=== PATIENT | female | born 1965 | race Two or more races ===

== ENCOUNTER 2023-05-17 10:03 | Outpatient (REF) | payer OTHER, SELFPAY ==
[2023-05-17 12:36] LABS: Syphilis Screen Nonreactive (Nonreactive)
[2023-05-17 13:39] LABS: Vitamin B12 > 2000 pg/mL (200-900)
[2023-05-21 05:53] LABS: Lyme Abs Screen <0.90 index
== END 2023-05-17 10:04 | disposition home or self-care (01) ==
LOC: HO.LAB 10:03
PROVIDERS: PCP Student in an Organized Health Care Education/Training Program; Visit Provider Psychiatry & Neurology Neurology
DX: G93.40 Encephalopathy, unspecified (principal)
CPT/HCPCS: 36415; 82607; 86617; 86618; 86780

== ENCOUNTER 2023-06-06 08:01 | Outpatient (REF) | payer OTHER, SELFPAY | END 2023-06-06 08:02 | disposition home or self-care (01) | LOC: HO.MRI 08:01 | PROVIDERS: PCP Student in an Organized Health Care Education/Training Program; Visit Provider Psychiatry & Neurology Neurology | DX: G93.40 Encephalopathy, unspecified (principal) | CPT/HCPCS: 70553; A9585 ==